=== PATIENT | female | born 1955 | race Caucasian/White ===

== ENCOUNTER → 2020-08-21 10:33 | Outpatient (REF) | payer BC, SELFPAY ==
--- NOTE | 2020-08-21 08:45 | PAPFT_PTH ---
PATIENT: Keiko Wang LOC: [facility] U#:[id number] AGE/SX: 70/F ROOM: RE08/21/[address]: Anat Rogers : 1955 BED: DIS: SPEC #: [id number] RECD: 08/21/20 17:48 STATUS: ELANA SHEPPARD #: [id number] LIBERTY: 08/21/20 08:[address]: Anat Rogers DEPT: [facility] Cytology RECD BY: Adenike Rodriguez Tissues: 1 - CX/ENDOCX FOR PAP SMEARS Procedures: PAP THIN PREP/[facility] Screening HPV DNA PROBE Comments: [id number]
[2020-08-21 15:17] LABS: ALT 86 U/L (14-59); AST 79 U/L (15-37); Albumin 4.2 g/dL (3.4-5.0); Alkaline Phosphatase 49 U/L (46-116); Anion Gap 10.7 mmol/L (3-11); BUN 11 mg/dL (7-18); Bilirubin, Total 0.5 mg/dL (0.2-1.0); CO2 26.3 mmol/L (21.0-32.0); CREATININE 0.83 mg/dL (0.55-1.02); Calcium 9.2 mg/dL (8.5-10.1); Calculated LDL 89 mg/dL (<100); Chloride 101 mmol/L (98-107); Cholesterol 239 mg/dL (<200); Glucose 91 mg/dL (74-106); HDL Cholesterol 142 mg/dL (40-60); Potassium 4.8 mmol/L (3.5-5.1); Sodium 138 mmol/L (136-145); TSH (W/Ref FT4) 2.56 uIU/mL (0.36-3.74); Total Protein 7.7 g/dL (6.4-8.2); Triglyceride 44 mg/dL (<150)
[2020-08-21 16:07] LABS: Abs Immature Grans 0.04 10^3/uL (0.0-0.06); Absolute Basophil Count 0.09 10^3/uL (0.0-0.2); Absolute Eosinophil Count 0.25 10^3/uL (0.0-0.7); Absolute Lymphocyte Count 2.25 10^3/uL (1.2-3.4); Basophils % 0.9; Eosinophils % 2.5; HCT 43.8 % (36.0-46.0); HGB 14.7 g/dL (11.2-15.7); Immature Grans % 0.4; Lymphocytes % 22.4; MCH 34.9 pg (27.0-33.0); MCHC 33.6 % (32.0-36.0); MPV 10.1 fL (8.0-11.0); Neutrophils % 61.8; Nucleated RBC 0 %; Platelet Count 333 10^3/uL (130-400); RBC 4.21 10^6/uL (3.93-5.22); RDW 12.5 % (11.7-14.6); RDW-SD 48.3 fL; WBC 10.03 10^3/uL (4.4-10.8)
== END ==
LOC: NCHCN 10:33
PROVIDERS: Visit Provider Physician Assistant
DX: I10 Essential (primary) hypertension (principal); Z86.39 Personal history of other endocrine, nutritional and metabolic disease; M32.9 Systemic lupus erythematosus, unspecified; Z12.4 Encounter for screening for malignant neoplasm of cervix; Z01.419 Encounter for gynecological examination (general) (routine) without abnormal findings; Z11.51 Encounter for screening for human papillomavirus (HPV); R87.610 Atypical squamous cells of undetermined significance on cytologic smear of cervix (ASC-US)
CPT/HCPCS: 80053; 80061; 82306; 88142; 84443; 85025; 87086; 87624

== ENCOUNTER 2021-10-31 20:03 | Outpatient (REF) | payer BC, SELFPAY ==
[2021-10-31 22:16] LABS: Abs Immature Grans 0.05 10^3/uL (0.0-0.06); Absolute Basophil Count 0.05 10^3/uL (0.0-0.2); Absolute Eosinophil Count 0.16 10^3/uL (0.0-0.7); Absolute Lymphocyte Count 2.21 10^3/uL (1.2-3.4); Absolute Monocyte Count 0.78 10^3/uL (0.1-0.8); Absolute Neutrophil Count 3.44 10^3/uL (1.2-6.7); Basophils % 0.7; Bilirubin Negative (Negative); Blood Trace-lysed (Negative); Clarity Clear (Clear); Eosinophils % 2.4; Glucose Negative (Negative); Immature Grans % 0.7; Ketones Negative (Negative); Leukocyte Esterase Negative (Negative); MCH 35.4 pg (27.0-33.0); MCHC 34.3 % (32.0-36.0); MCV 103.2 fL (80-95); MPV 10.1 fL (8.0-11.0); Monocytes % 11.7; Neutrophils % 51.5; Nitrite Negative (Negative); Nucleated RBC 0 %; Platelet Count 272 10^3/uL (130-400); RBC 3.39 10^6/uL (3.93-5.22); RDW 14.5 % (11.7-14.6); RDW-SD 54.9 fL; Urobilinogen 0.2 EU/dL (Up TO 0.2); WBC 6.69 10^3/uL (4.4-10.8); pH 5.5 (5-8)
[2021-10-31 22:23] LABS: Bacteria Few HPF (Negative); Epithelial Cells Moderate HPF (Negative); Other Cells Few Yeast (Negative); WBC 0-2 HPF (0-5)
[2021-10-31 22:24] LABS: C & S Indicated? Yes; Casts Negative LPF (Negative); Crystals Negative HPF (Negative); Mucus Trace (Negative)
[2021-10-31 22:34] LABS: ALT 62 U/L (14-59); AST 89 U/L (15-37); Albumin 3.5 g/dL (3.4-5.0); Alkaline Phosphatase 62 U/L (46-116); BUN 7 mg/dL (7-18); Bilirubin, Total 0.5 mg/dL (0.2-1.0); CREATININE 0.7 mg/dL (0.55-1.02); Calcium 8.6 mg/dL (8.5-10.1); Chloride 92 mmol/L (98-107); Glucose 86 mg/dL (74-106); Potassium 4.9 mmol/L (3.5-5.1); Sodium 129 mmol/L (136-145); TSH 1.35 uIU/mL (0.36-3.74); Total Protein 6.8 g/dL (6.4-8.2)
== END 2021-10-31 20:04 | disposition home or self-care (01) ==
LOC: NCHCN 20:03
PROVIDERS: PCP Physician Assistant; Visit Provider Physician Assistant
DX: I10 Essential (primary) hypertension (principal); M32.9 Systemic lupus erythematosus, unspecified
CPT/HCPCS: 80053; 81003; 81015; 84443; 85025; 87086

== ENCOUNTER 2023-04-21 17:25 | Outpatient (REF) | payer SELFPAY ==
--- NOTE | 2023-04-21 13:30 | PAPFT_PTH ---
PATIENT: Keiko Wang LOC: [facility]#:[id number] AGE/SX: 68/F ROOM: RE04/21/[address]: Anat Rogers : 1955 BED: DIS: 04/21/2023 SPEC #: [id number] RECD: 04/22/23 17:33 STATUS: ELANA REGloria #: [id number] LIBERTY: 04/21/23 13:[address]: Anat Rogers DEPT: [facility] Cytology RECD BY: Adenike Rodriguez Tissues: 1 - CX/ENDOCX FOR PAP SMEARS Procedures: PAP THIN PREP/[facility] Screening HPV DNA PROBE Comments: [id number]
[2023-04-21 19:07] LABS: HCT 39.6 % (36.0-46.0); HGB 12.9 g/dL (11.2-15.7); MCH 32.7 pg (27.0-33.0); MCHC 32.6 % (32.0-36.0); MCV 101 fL (80-95); MPV 10.7 fL (8.0-11.0); Platelet Count 387 10^3/uL (130-400); RBC 3.94 10^6/uL (3.93-5.22); RDW 12.7 % (11.7-14.6); RDW-SD 47.1 fL; WBC 11.43 10^3/uL (4.4-10.8)
[2023-04-21 19:08] LABS: Bilirubin Negative (Negative); Blood Negative (Negative); Clarity Clear (Clear); Glucose Negative (Negative); Ketones Negative (Negative); Leukocyte Esterase Negative (Negative); Nitrite Negative (Negative); Specific Gravity <= 1.005 (1.005-1.025); Urobilinogen 0.2 mg/dL (Up to 0.2); pH 5.5 (5-8)
[2023-04-21 19:51] LABS: ALT 16 U/L (14-59); AST 19 U/L (15-37); Albumin 3.9 g/dL (3.4-5.0); Alkaline Phosphatase 47 U/L (46-116); Anion Gap 11.2 mmol/L (3-11); BUN 10 mg/dL (7-18); Bilirubin, Total 0.3 mg/dL (0.2-1.0); CO2 24.8 mmol/L (21.0-32.0); CREATININE 0.8 mg/dL (0.55-1.02); Calcium 9.9 mg/dL (8.5-10.1); Chloride 100 mmol/L (98-107); Estimated GFR 81.21 (mL/min/1.73m2); Ferritin 91 ng/mL (8-252); Glucose 86 mg/dL (74-106); Sodium 136 mmol/L (136-145); TSH (W/Ref FT4) 2.74 uIU/mL (0.36-3.74); Total Protein 8.3 g/dL (6.4-8.2)
[2023-04-21 19:53] LABS: Iron 57 ug/dL (50-170); Total Iron Binding Capacity 368 ug/dL (250-450); Transferrin Sat 15 % (15-50)
[2023-04-23 10:38] LABS: Hepatitis C Ab w Rflx HCV PCR Negative (Negative)
== END 2023-04-21 17:26 | disposition home or self-care (01) ==
LOC: NCHCN 17:25
PROVIDERS: PCP Physician Assistant; Visit Provider Physician Assistant
DX: Z12.4 Encounter for screening for malignant neoplasm of cervix (principal); R87.610 Atypical squamous cells of undetermined significance on cytologic smear of cervix (ASC-US); Z01.419 Encounter for gynecological examination (general) (routine) without abnormal findings
CPT/HCPCS: 80053; 85027; 86803; 88142; 81003; 82728; 83540; 83550; 84443; 87624